=== PATIENT | female | born 1995 | race Two or more races ===

== ENCOUNTER 2019-07-15 09:37 | Emergency (ER) | payer OTHER ==
--- NOTE | 2019-07-15 11:34 | CR ---
Chest: Portable view of the chest was obtained. Comparison: Prior chest x-ray of . Heart size and mediastinum are normal. Lungs are clear with no acute parenchymal change. Bony structures show nothing acute. Impression: 1. Nothing acute is identified on portable chest x-ray. Diagnostic code #1 This report was dictated in MDT
--- NOTE | 2019-07-15 11:51 | EDM.PDOC ---
ED HPI GENERAL MEDICAL PROBLEM - General Chief Complaint: Respiratory Problem Stated Complaint: FLU LIKE SYMPTOMS;COVID-19 positive Time Seen by Provider: 07/15/19 11:09 Source of Information: Reports: Patient, RN Notes Reviewed History Limitations: Reports: No Limitations - History of Present Illness INITIAL COMMENTS - FREE TEXT/NARRATIVE: Patient is a 24-year-old female who presents to the ED for evaluation of her ongoing COVID-19 symptoms. The patient states that she tested positive for blackwell virus on 10 July. She states that the Department of Health traced her symptoms back to have started around 03 July. She states that they said her symptoms should peak in about 5 to 10 days, she states that her shortness of breath is gotten worse, and her body aches have gotten worse, she feels as if she has just been run over by a semi-truck. Patient also does have a history of asthma, and has been using her inhaler. The patient states she is experiencing headache, chest discomfort from the coughing, shortness of breath, loss of appetite And a dry intermittent cough. Patient states that she has not been eating or drinking much at all, she does not feel like she wants to. She states that she is trying to eat Gatorade and small meals. Patient is not noting any wheezing from her lungs. She is taking Tylenol as well for symptoms. At time of triage patient is mildly tachycardic at 113 bpm, afebrile at 98.7 F. Respiratory rate of 20, blood pressure 150/82, and O2 sats of 99% on room air. Chest Pain Score (Numeric/FACES): 4 - Related Data Allergies Allergy/AdvReac Type Severity Reaction Status Date / Time No Known Allergies Allergy Verified 07/15/19 09:39 Home Meds: Home Meds Albuterol Sulfate [Proair Hfa] 8.5 gm IH Q4HR PRN 07/15/19 [History] Past Medical History Respiratory History: Reports: Asthma - Infectious Disease History Infectious Disease History: Reports: Novel Coronavirus (COVID-19 diagnosed Jul 10) - Past Surgical History HEENT Surgical History: Reports: Naso-Sinus Surgery Social & Family History - Family History Family Medical History: Noncontributory - Tobacco Use Smoking Status *Q: Never Smoker Second Hand Smoke Exposure: No ED ROS GENERAL - Review of Systems Review Of Systems: See Below Constitutional: Reports: Fever, Malaise, Weakness, Fatigue, Decreased Appetite. Denies: Weight Loss HEENT: Denies: Rhinitis Respiratory: Reports: Shortness of Breath, Pleuritic Chest Pain, Cough. Denies : Wheezing, Sputum GI/Abdominal: Reports: Nausea (intermittent). Denies: Abdominal Pain, Constipation, Diarrhea, Vomiting Skin: Denies: Cyanosis Neurological: Reports: Headache. Denies: Confusion ED EXAM, GENERAL - Physical Exam Exam: See Below Exam Limited By: No Limitations General Appearance: Alert, WD/WN, No Apparent Distress, Anxious (mildly) Eye Exam: Bilateral Eye: EOMI, Normal Inspection Ears: Normal External Exam Nose: Normal Inspection Throat/Mouth: Normal Inspection, Normal Lips, Normal Teeth, Normal Gums, Normal Oropharynx, Normal Voice, No Airway Compromise Head: Atraumatic, Normocephalic Neck: Normal Inspection Respiratory/Chest: No Respiratory Distress, Lungs Clear, Normal Breath Sounds, No Accessory Muscle Use, Chest Non-Tender Cardiovascular: Normal Peripheral Pulses, Regular Rate, Rhythm, No Edema, No Murmur Peripheral Pulses: 3+: Radial (L), Radial (R) GI/Abdominal: Normal Bowel Sounds, Soft, Non-Tender, No Distention, No Mass Extremities: Normal Inspection, Normal Capillary Refill Neurological: Alert, Oriented, Normal Cognition, No Motor/Sensory Deficits Psychiatric: Normal Affect, Normal Mood Skin Exam: Warm, Dry, Intact, Normal Color, No Rash Course - Vital Signs Last Recorded V/S: Last Vital Signs Temp 98.7 F 07/15/19 09:41 Pulse 113 H 07/15/19 09:41 Resp 20 07/15/19 09:41 BP 150/82 H 07/15/19 09:41 Pulse Ox 99 07/15/19 09:41 - Re-Assessments/Exams Free Text/Narrative Re-Assessment/Exam: 07/15/19 11:56 Patient presents to the ED for her ongoing coronavirus symptoms. The patient did have a chest x-ray done, this is within normal limits, the patient is in no respiratory distress at time of triage, but states she just feels generally miserable. I did give her reassurance, and other general recommendations. Patient will be discharged home as such. Departure - Departure Time of Disposition: 11:56 Disposition: Home, Self-Care 01 Condition: Good Clinical Impression: Infection due to 2019 novel coronavirus - Discharge Information *PRESCRIPTION DRUG MONITORING PROGRAM REVIEWED*: No *COPY OF PRESCRIPTION DRUG MONITORING REPORT IN PATIENT TACOS: No Instructions: Novel Coronavirus Infection Referrals: PCP,None [Primary Care Provider] - Additional Instructions: You were evaluated in the ER today regarding your ongoing COVID-19 symptoms. Your chest x-ray is within normal limits, and your oxygen levels are great at 99 -100% on room air. Due to your asthma, please continue to use your inhaler as directed. You would likely benefit from doing 1 to 2 puffs 4 times a day while symptomatic. You may use 500 mg Tylenol or 600 mg ibuprofen every 6 hours as needed for further pain/symptom relief. Do not exceed 4000 mg Tylenol or 3200 mg ibuprofen in a 24-hour time span. Please try to keep yourself well hydrated with Gatorade and eat multiple small meals throughout the day, if your appetite is lacking. Highly and strongly recommend you still try to self quarantine at home, and keep in contact with the [place] [facility], for tracking of your symptoms. Please return to the ER at any time if symptoms should change or worsen. Sepsis Event Note - Evaluation Sepsis Screening Result: No Definite Risk - Focused Exam Vital Signs: Vital Signs Temp Pulse Resp BP Pulse Ox 07/15/19 09:41 98.7 F 113 H 20 150/82 H 99 Date Exam was Performed: 07/15/19 Time Exam was Performed: 11:45
== END 2019-07-15 12:15 | disposition home or self-care (01) ==
LOC: JD.ED 09:37
DX: B97.29 Other coronavirus as the cause of diseases classified elsewhere (principal)
CPT/HCPCS: 71045; 71045-26; 99282; 99284-25

== ENCOUNTER 2019-07-23 11:34 | Emergency (ER) | payer OTHER ==
--- NOTE | 2019-07-23 12:14 | EDM.PDOC ---
ED HPI GENERAL MEDICAL PROBLEM - General Chief Complaint: Respiratory Problem Stated Complaint: COVID-19 POSITIVE Time Seen by Provider: 07/23/19 11:41 Source of Information: Reports: Patient, Old Records, RN Notes Reviewed History Limitations: Reports: No Limitations - History of Present Illness INITIAL COMMENTS - FREE TEXT/NARRATIVE: Patient is a 24-year-old female who presents to the ED for ongoing COVID-19 symptoms. The patient notes that she was diagnosed on July 10, has an underlying history of asthma as well. She states that she has been staying home , and everything seems to have been going okay, however last night she had a pretty rough night where she felt it very difficult to get any sort of deep breath. She felt like she just could not catch her breath. Patient has been using her albuterol inhaler, last use was at around 8:30 this morning, she is also been using Tylenol for suspected fevers, she does not have a thermometer at home and works. But she has been having ongoing hot and cold flashes. Patient states that she is still having a very poor appetite, and feels as if she is "losing it a little bit". Patient does still have a dry intermittent cough and complains about her chest being tender all over, and she is experiencing some what she thinks is a muscle spasm on the bottom of her right rib cage from time to time. Patient is afebrile at time of triage, 98.5 F, respiratory rate of 20, pulse of 94, blood pressure 119/75, and O2 sats are 99% on room air. The patient was contacted by the clinic this morning to check on how she was doing, and also by the Department of Health, and they told her to come back to the ER for further evaluation due to her ongoing shortness of breath. - Related Data Allergies Allergy/AdvReac Type Severity Reaction Status Date / Time No Known Allergies Allergy Verified 07/23/19 11:41 Home Meds: Home Meds Albuterol Sulfate [Proair Hfa] 8.5 gm IH Q4HR PRN 07/15/19 [History] Past Medical History Respiratory History: Reports: Asthma - Infectious Disease History Infectious Disease History: Reports: Novel Coronavirus Other Infectious Disease History: Covid 19 - Past Surgical History HEENT Surgical History: Reports: Naso-Sinus Surgery Social & Family History - Family History Family Medical History: Noncontributory - Tobacco Use Smoking Status *Q: Never Smoker - Caffeine Use Caffeine Use: Reports: Coffee - Recreational Drug Use Recreational Drug Use: No ED ROS GENERAL - Review of Systems Review Of Systems: See Below Constitutional: Reports: Fever (subjective), Chills (subjective), Malaise ( generalized), Decreased Appetite. Denies: Weight Loss HEENT: Denies: Rhinitis Respiratory: Reports: Shortness of Breath (worsened), Cough. Denies: Sputum Cardiovascular: Reports: Chest Pain (all over chest tenderness) GI/Abdominal: Reports: Nausea. Denies: Abdominal Pain, Constipation, Diarrhea, Vomiting : Denies: Dysuria ED EXAM, GENERAL - Physical Exam Exam: See Below Exam Limited By: No Limitations General Appearance: Alert, WD/WN, No Apparent Distress (pt can converse with me in full sentences) Eye Exam: Bilateral Eye: EOMI, Normal Inspection, PERRL Ears: Normal External Exam Nose: Normal Inspection Throat/Mouth: Normal Inspection, Normal Lips, Normal Teeth, Normal Gums, Normal Oropharynx, Normal Voice, No Airway Compromise Head: Atraumatic, Normocephalic Neck: Normal Inspection Respiratory/Chest: No Respiratory Distress, Lungs Clear, No Accessory Muscle Use , Decreased Breath Sounds (diffuse bilaterally). No: Rhonchi, Wheezing Cardiovascular: Normal Peripheral Pulses, Regular Rate, Rhythm, No Edema, No Murmur GI/Abdominal: Normal Bowel Sounds, Soft, Non-Tender, No Distention, No Mass Extremities: Normal Inspection, Normal Capillary Refill Neurological: Alert, Oriented, CN II-XII Intact, Normal Cognition, No Motor/ Sensory Deficits Psychiatric: Normal Affect, Normal Mood Skin Exam: Warm, Dry, Intact, Normal Color, No Rash Course - Vital Signs Last Recorded V/S: Last Vital Signs Temp 98.5 F 07/23/19 11:39 Pulse 94 07/23/19 11:39 Resp 20 07/23/19 11:39 BP 119/75 07/23/19 11:39 Pulse Ox 99 07/23/19 11:39 - Orders/Labs/Meds Orders: Active Orders 24 hr Category Date Time Status Peripheral IV Care [RC] . DIRECTED Care 07/23/19 12:18 Ordered Sodium Chloride 0.9% [Saline Flush] Med 07/23/19 12:18 Ordered 10 ml FLUSH ASDIRECTED PRN Peripheral IV Insertion Adult [OM.PC] Stat Oth 07/23/19 12:18 Ordered Medication Orders Sodium Chloride (Saline Flush) 10 ml FLUSH ASDIRECTED PRN PRN Reason: Keep Vein Open Labs: Laboratory Tests 07/23/19 07/23/19 07/23/19 Range/Units 12:35 12:35 12:35 WBC 8.15 (3.98-10.04) K/mm3 RBC 4.70 (3.98-5.22) M/mm3 Hgb 14.8 (11.2-15.7) gm/dl Hct 42.2 (34.1-44.9) % MCV 89.8 (79.4-94.8) fl MCH 31.5 (25.6-32.2) pg MCHC 35.1 (32.2-35.5) g/dl RDW Std Deviation 42.2 (36.4-46.3) fL Plt Count 282 (182-369) K/mm3 MPV 9.8 (9.4-12.3) fl Neutrophils % (Manual) 92 H (40-60) % Band Neutrophils % 0 (0-10) % Lymphocytes % (Manual) 7 L (20-40) % Atypical Lymphs % 0 % Monocytes % (Manual) 1 L (2-10) % Eosinophils % (Manual) 0 L (0.7-5.8) % Basophils % (Manual) 0 L (0.1-1.2) Platelet Estimate Adequate RBC Morph Comment Normal PT 10.4 (9.7-12.0) SECONDS INR 0.95 APTT 29 (22-31) SECONDS Sodium (136-145) mEq/L Potassium (3.5-5.1) mEq/L Chloride (98-107) mEq/L Carbon Dioxide (21-32) mEq/L Anion Gap (5-15) BUN (7-18) mg/dL Creatinine (0.55-1.02) mg/dL Est Cr Clr Drug Dosing mL/min Estimated GFR (MDRD) (>60) mL/min BUN/Creatinine Ratio (14-18) Glucose (74-106) mg/dL Calcium (8.5-10.1) mg/dL Magnesium (1.8-2.4) mg/dl Ferritin (8-252) ng/ml Total Bilirubin (0.2-1.0) mg/dL AST (15-37) U/L ALT (14-59) U/L Alkaline Phosphatase (46-116) U/L Lactate Dehydrogenase (81-234) U/L Creatine Kinase (26-192) U/L C-Reactive Protein 1.3 H* (<1.0) mg/dL Total Protein (6.4-8.2) g/dl Albumin (3.4-5.0) g/dl Globulin gm/dL Albumin/Globulin Ratio (1-2) 07/23/19 07/23/19 Range/Units 12:35 12:35 WBC (3.98-10.04) K/mm3 RBC (3.98-5.22) M/mm3 Hgb (11.2-15.7) gm/dl Hct (34.1-44.9) % MCV (79.4-94.8) fl MCH (25.6-32.2) pg MCHC (32.2-35.5) g/dl RDW Std Deviation (36.4-46.3) fL Plt Count (182-369) K/mm3 MPV (9.4-12.3) fl Neutrophils % (Manual) (40-60) % Band Neutrophils % (0-10) % Lymphocytes % (Manual) (20-40) % Atypical Lymphs % % Monocytes % (Manual) (2-10) % Eosinophils % (Manual) (0.7-5.8) % Basophils % (Manual) (0.1-1.2) Platelet Estimate RBC Morph Comment PT (9.7-12.0) SECONDS INR APTT (22-31) SECONDS Sodium 141 (136-145) mEq/L Potassium 4.1 (3.5-5.1) mEq/L Chloride 104 (98-107) mEq/L Carbon Dioxide 27 (21-32) mEq/L Anion Gap 14.1 (5-15) BUN 15 (7-18) mg/dL Creatinine 0.9 (0.55-1.02) mg/dL Est Cr Clr Drug Dosing 68.04 mL/min Estimated GFR (MDRD) > 60 (>60) mL/min BUN/Creatinine Ratio 16.7 (14-18) Glucose 83 (74-106) mg/dL Calcium 9.4 (8.5-10.1) mg/dL Magnesium 2.0 (1.8-2.4) mg/dl Ferritin 91 (8-252) ng/ml Total Bilirubin 0.6 (0.2-1.0) mg/dL AST 20 (15-37) U/L ALT 34 (14-59) U/L Alkaline Phosphatase 75 (46-116) U/L Lactate Dehydrogenase 158 (81-234) U/L Creatine Kinase 52 (26-192) U/L C-Reactive Protein (<1.0) mg/dL Total Protein 7.9 (6.4-8.2) g/dl Albumin 3.8 (3.4-5.0) g/dl Globulin 4.1 gm/dL Albumin/Globulin Ratio 0.9 L (1-2) Meds: Medications Generic Name Dose Route Start Last Admin Trade Name Freq PRN Reason Stop Dose Admin Sodium Chloride 10 ml 07/23/19 12:18 Saline Flush FLUSH ASDIRECTED PRN Keep Vein Open - Re-Assessments/Exams Free Text/Narrative Re-Assessment/Exam: 07/23/19 12:19 Patient presents to the ED for her ongoing COVID-19 symptoms. I will repeat a chest x-ray, and get some laboratory evaluation to see if she is possibly dehydrated, her O2 sats look okay, will reassess when labs and imaging is done. 07/23/19 12:43 The patient's chest x-ray is done, and there are no acute infiltrates noted on the chest x-ray at this time. Laboratory evaluation is pending. Current information from [facility] states: According to the WHO, recovery time appears to be around two weeks for mild infections and three to six weeks for severe disease. 07/23/19 13:49 The patient's laboratory evaluation is back, and CRP is only mildly elevated at 1.6. All other lab values are within normal limits. At this time there is no indication for hospitalization, the patient will be discharged home with general recommendations and have her follow-up in clinic if needed. Departure - Departure Time of Disposition: 13:50 Disposition: Home, Self-Care 01 Condition: Fair Clinical Impression: Infection due to 2019 novel coronavirus - Discharge Information *PRESCRIPTION DRUG MONITORING PROGRAM REVIEWED*: No *COPY OF PRESCRIPTION DRUG MONITORING REPORT IN PATIENT TACOS: No Instructions: Shortness of Breath, Adult, [id number] Forms: ED Department Discharge Additional Instructions: You were seen in the ER today for ongoing and/or worsening respiratory symptoms. Your chest x-ray showed no signs of pneumonia at this time. Your oxygen levels were great at 98-99% on room air. Laboratory evaluation demonstrates no worrisome abnormalities at this time. Keep using your albuterol inhaler, roughly 1 to 2 puffs 4 times a day to help lessen symptoms of shortness of breath. It is recommended at this time that you go home and self quarantine and try to limit exposure to others as much as possible. Please try to increase your oral fluid intake, and eat multiple small meals throughout the day, to keep yourself healthy. You may take 500 mg Tylenol every hours 6 hours for pain/fever relief. Do not exceed 4000 mg Tylenol in a 24-hour time span. However, running a fever is your body's natural response to illness, and it allows the body to develop antibodies to disease, we are recommending trying to limit the use of Tylenol as much as possible to allow your body's natural immune response. It is recommended to try to lay on your belly as much as possible, this does take some pressure off of your lungs in therapy, and should help lessen your shortness of breath. Please keep in contact with your primary care provider, and the [facility], to keep monitoring your symptoms as needed. Sepsis Event Note - Evaluation Sepsis Screening Result: No Definite Risk - Focused Exam Vital Signs: Vital Signs Temp Pulse Resp BP Pulse Ox 07/23/19 11:39 98.5 F 94 20 119/75 99 Date Exam was Performed: 07/23/19 Time Exam was Performed: 13:52 - My Orders Last 24 Hours: My Active Orders 07/23/19 12:18 Peripheral IV Care [RC] . DIRECTED Sodium Chloride 0.9% [Saline Flush] 10 ml FLUSH ASDIRECTED PRN Peripheral IV Insertion Adult [OM.PC] Stat - Assessment/Plan Last 24 Hours: My Active Orders 07/23/19 12:18 Peripheral IV Care [RC] . DIRECTED Sodium Chloride 0.9% [Saline Flush] 10 ml FLUSH ASDIRECTED PRN Peripheral IV Insertion Adult [OM.PC] Stat
[2019-07-23] MEDS ORDERED: Sodium Chloride 0.9% 10 ML Syringe FLUSH PRN (12:18)
--- NOTE | 2019-07-23 12:38 | CR ---
Chest: Portable view of the chest was obtained. Comparison: Previous chest imaging of 07/15/19. Heart size and mediastinum are within normal limits for portable technique. Lungs are clear with no acute parenchymal change. Bony structures are unremarkable. Impression: 1. Nothing acute is appreciated on portable chest x-ray. Diagnostic code #1 This report was dictated in MDT
== END 2019-07-23 14:47 | disposition home or self-care (01) ==
LOC: JD.ED 11:34
DX: U07.1 COVID-19 (principal); J45.909 Unspecified asthma, uncomplicated
CPT/HCPCS: 36415; 71045; 71045-26; 80053; 82550; 82728; 83615; 83735; 85007; 85027; 85610; 85730; 86140; 99283; 99285-25

== ENCOUNTER 2020-02-06 10:07 | Day surgery (SDC) | payer BC, OTHER ==
[~2020-02-06 10:07] MED LIST: FLU VACC QS2020-21(6MOS UP)/PF 60 MCG/0.5 ML SYRINGE IM ONE; Lactated Ringers 1,000 ML IV SCH; Lidocaine 1%/Sod Bicarbonate in NS 8.4% 1 ML Syringe IDERM PRN; Sodium Chloride 0.9% 10 ML Syringe FLUSH PRN
--- NOTE | 2020-02-06 10:26 | PCM.PREANE ---
Preanesthetic Assessment - Procedure Proposed Procedure: colonoscopy - Anesthesia/Transfusion/Family Hx Anesthesia History: Prior Anesthesia Without Reaction Family History of Anesthesia Reaction: No Transfusion History: No Prior Transfusion(s) - Review of Systems General: No Symptoms Pulmonary: No Symptoms Cardiovascular: No Symptoms Gastrointestinal: Abdominal Pain (bleeding- constipation and diarrhea) Neurological: No Symptoms Other: Reports: Depression, Anxiety - Physical Assessment NPO Status Date: 02/05/20 NPO Status Time: 23:30 Vital Signs: 120/78 90 96% 16 98.1 Height: 5 ft Weight: 100.5 kg ASA Class: 2 Mental Status: Alert & Oriented x3 Airway Class: Mallampati = 1 Dentition: Reports: Normal Dentition (has braces on) Thyro-Mental Finger Breadths: 3 Mouth Opening Finger Breadths: 3 ROM/Head Extension: Full Lungs: Clear to Auscultation, Normal Respiratory Effort Cardiovascular: Regular Rate, Regular Rhythm - Lab Values: Laboratory Last Values SARS-CoV-2 (PCR) Not detected (NOT DETECT) 02/02/20 10:18 - Allergies Allergies/Adverse Reactions: Allergies Allergy/AdvReac Type Severity Reaction Status Date / Time adhesive Allergy Cannot Verified 02/05/20 15:15 Remember levocetirizine [From Xyzal] Allergy Cannot Verified 02/05/20 15:15 Remember peanut Allergy Cannot Verified 02/05/20 15:15 Remember dihydrochlride Allergy Cannot Uncoded 02/05/20 15:15 Remember - Blood Blood Available: No - Acknowledgements Anesthesia Type Planned: MAC Pt an Appropriate Candidate for the Planned Anesthesia: Yes Alternatives and Risks of Anesthesia Discussed w Pt/Guardian: Yes Pt/Guardian Understands and Agrees with Anesthesia Plan: Yes PreAnesthesia Questionnaire HEENT History: Reports: Sinusitis Cardiovascular History: Reports: None Respiratory History: Reports: Asthma Gastrointestinal History: Reports: Other (See Below) Other Gastrointestinal History: strep pneumonae Genitourinary History: Reports: None PROJECT DEVELOPMENT LEADER History: Reports: None Musculoskeletal History: Reports: Back Pain, Chronic, Neck Pain, Chronic Neurological History: Reports: Headaches, Chronic Psychiatric History: Reports: Anxiety Endocrine/Metabolic History: Reports: Obesity/BMI 30+ Hematologic History: Reports: None Immunologic History: Reports: None Oncologic (Cancer) History: Reports: None Dermatologic History: Reports: None - Infectious Disease History Infectious Disease History: Reports: Novel Coronavirus Other Infectious Disease History: Covid 19 - Past Surgical History Head Surgeries/Procedures: Reports: None HEENT Surgical History: Reports: Naso-Sinus Surgery Cardiovascular Surgical History: Reports: None Respiratory Surgical History: Reports: None GI Surgical History: Reports: None Female Surgical History: Reports: None Male Surgical History: Reports: None Endocrine Surgical History: Reports: None Neurological Surgical History: Reports: None Musculoskeletal Surgical History: Reports: None Oncologic Surgical History: Reports: None Dermatological Surgical History: Reports: None - SUBSTANCE USE Tobacco Use Status *Q: Never Tobacco User Tobacco Use Within Last Twelve Months: No Second Hand Smoke Exposure: No Days Per Week of Alcohol Use: 1 Recreational Drug Use History: No - HOME MEDS Home Medications: Home Meds Albuterol Sulfate [Proair Hfa] 8.5 gm IH Q4HR PRN 07/15/19 [History] Acetaminophen [Tylenol] 650 mg PO Q4H PRN 02/05/20 [History] Cyclobenzaprine [Flexeril] 10 mg PO TID PRN 02/05/20 [History] DULoxetine [Cymbalta] 30 mg PO DAILY 02/05/20 [History] DULoxetine [Cymbalta] 60 mg PO DAILY 02/05/20 [History] Fexofenadine [Jo Ann] 60 mg PO BID PRN 02/05/20 [History] Fluticasone Propionate [Flonase] 1 dose NASBOTH ASDIRECTED PRN 02/05/20 [History] Phentermine HCl 15 mg PO DAILY 02/05/20 [History] - CURRENT (IN HOUSE) MEDS Current Meds: Current Medications Lactated Ringer's (Ringers, Lactated) 1,000 mls @ 125 mls/hr IV ASDIRECTED KAIN Stop: 02/06/20 23:00 Lidocaine/Sodium Bicarbonate (Buffered Lidocaine 1% In Ns 8.4%) 0.25 ml IDERM O NETIME PRN PRN Reason: Prior to IV Start Stop: 02/06/20 18:00 Sodium Chloride (Saline Flush) 10 ml FLUSH ASDIRECTED PRN PRN Reason: Keep Vein Open Stop: 02/06/20 18:00 Discontinued Medications Influenza Virus Vaccine (Fluzone Quad [id number] Syringe) 60 mcg IM .ONCE ONE Stop: 02/06/20 08:01
[2020-02-06] MEDS ORDERED: Propofol 200 MG/20 ML SDV ONE ×2 (10:34→11:25)
[2020-02-06] MEDS ORDERED: Midazolam 1 MG/ML 2 ML SDV ONE (10:34)
[2020-02-06] MEDS ORDERED: Lidocaine 1% 4 ML ONE (11:22)
[2020-02-06] MEDS ORDERED: fentaNYL 250 MCG/5 ML SDV ONE (11:25)
--- NOTE | 2020-02-06 12:11 | PCM48HPAN ---
Post Anesthesia Note - EVALUATION WITHIN 48HRS OF ANESTHETIC Vital Signs in Normal Range: Yes Patient Participated in Evaluation: Yes Respiratory Function Stable: Yes Airway Patent: Yes Cardiovascular Function Stable: Yes Hydration Status Stable: Yes Pain Control Satisfactory: Yes Nausea and Vomiting Control Satisfactory: Yes Mental Status Recovered: Yes Vital Signs: Last Vital Signs Temp 36.7 C 02/06/20 10:15 Pulse 90 02/06/20 10:15 Resp 16 02/06/20 10:15 BP 120/78 02/06/20 10:15 Pulse Ox 96 02/06/20 10:15
--- NOTE | 2020-02-06 12:11 | PCM.OPNOTE ---
- General Post-Op/Procedure Note Date of Surgery/Procedure: 02/06/20 Operative Procedure(s): colonoscopy with hemorrhoid banding Findings: 1. Proctitis 2. Internal hemorrhoids Pre Op Diagnosis: rectal bleeding and anal pain Post-Op Diagnosis: same Anesthesia Technique: KAREN Primary Surgeon: Roma Redmond Anesthesia Provider: Elaine Martinez Pathology: Rectal biopsies Fluid Replacement, Intraop: 900 EBL in mLs: 0 Complications: none apparent Condition: Good
--- NOTE | 2020-02-06 12:12 | PCM.PRNOTE ---
- Free Text/Narrative Note: Operative Report Date of Surgery/Procedure: February 06, 2020 Operative Procedure: Colonoscopy to cecum with biopsy Pre Op Diagnosis: rectal bleeding and anal pain Post-Op Diagnosis: Same Surgeon: Roma Redmond MD Anesthesia Technique: MAC Anesthesia Provider: Elaine Martinez CRNA IV Fluid Replacement, Intraop: 900cc Output, Urine Amount: 0cc EBL : 0cc Findings: 1. Proctitis 2. Internal hemorrhoids Specimens: Rectal biopsies Indication: The patient is a 24 year-old lady who presented to the outpatient clinic for complaints of rectal bleeding and anal pain. We discussed the procedure of a colonoscopy including the polypectomy and biopsy, and possible hemorrhoid banding. Risks of bleeding and perforation were discussed, the patient understood and wished to proceed. Written and consent was obtained Description of the procedure: The patient was brought to the endoscopy suite and placed in the left lateral decubitus position. Appropriate monitors were applied. The patient was given MAC anesthesia. An anorectal examination was performed, revealing minimal external skin tags. The scope was placed into the rectum and advanced to cecum with minimal difficulty. The patients cecum was entered, and the ileocecal valve and appendiceal orifice were identified and normal. At this point, the scope was withdrawn, paying careful attention to the mucosa. The patient had good bowel prep, allowing for visualization of 85-90% of the mucosa. Increased vascularity was noted in the rectum, biopsies were taken in this area using a cold biopsy forceps. In the rectum, the scope was retroflexed and no abnormalities were noted, except for some hemorrhoidal tissue. The scope was placed back in the lumen and the excess air was aspirated. The hemorrhoid banding anoscope was then inserted. There were prominent hemorrhoid cushions noted with anoscope. Hemorrhoid bands x3 were placed. The anoscope was then withdrawn. The patient tolerated the procedure well. Complications: none apparent Condition: Good, transported to PACU in stable condition Roma Redmond MD General Surgery
== END 2020-02-06 12:56 | disposition home or self-care (01) ==
LOC: JD.SDS 10:07
PROVIDERS: ATTEND Surgery
DX: K62.89 Other specified diseases of anus and rectum (principal); K64.8 Other hemorrhoids; L91.8 Other hypertrophic disorders of the skin; K64.4 Residual hemorrhoidal skin tags; F41.9 Anxiety disorder, unspecified; J45.909 Unspecified asthma, uncomplicated; Z79.899 Other long term (current) drug therapy
CPT/HCPCS: 45380; 46221; 81025; J2001; J2250; J2704; J3010; J7120; 00902; U0002

== ENCOUNTER 2020-02-27 07:53 | Day surgery (SDC) | payer BC ==
[~2020-02-27 07:53] MED LIST changes: -FLU VACC QS2020-21(6MOS UP)/PF 60 MCG/0.5 ML SYRINGE IM ONE
--- NOTE | 2020-02-27 08:25 | PCM.PREANE ---
Preanesthetic Assessment - Procedure Proposed Procedure: egd - Anesthesia/Transfusion/Family Hx Anesthesia History: Prior Anesthesia Without Reaction Family History of Anesthesia Reaction: No Transfusion History: No Prior Transfusion(s) - Review of Systems General: No Symptoms Pulmonary: No Symptoms Cardiovascular: No Symptoms Gastrointestinal: No Symptoms Neurological: No Symptoms Other: Reports: Depression, Anxiety - Physical Assessment NPO Status Date: 02/26/20 NPO Status Time: 21:30 Vital Signs: Last Vital Signs Temp 97.0 F 02/27/20 07:55 Pulse 80 02/27/20 07:55 Resp 16 02/27/20 07:55 BP 114/71 02/27/20 07:55 Pulse Ox 97 02/27/20 07:55 Height: 5 ft Weight: 102.512 kg ASA Class: 3 Mental Status: Alert & Oriented x3 Airway Class: Mallampati = 1 Dentition: Reports: Normal Dentition Thyro-Mental Finger Breadths: 3 Mouth Opening Finger Breadths: 3 ROM/Head Extension: Full Lungs: Clear to Auscultation, Normal Respiratory Effort Cardiovascular: Regular Rate, Regular Rhythm - Lab Values: Laboratory Last Values Urine HCG, Qual Negative (NEGATIVE) 02/27/20 07:52 - Allergies Allergies/Adverse Reactions: Allergies Allergy/AdvReac Type Severity Reaction Status Date / Time adhesive Allergy Cannot Verified 02/06/20 10:58 Remember levocetirizine [From Xyzal] Allergy Cannot Verified 02/06/20 10:58 Remember peanut Allergy Cannot Verified 02/06/20 10:58 Remember dihydrochlride Allergy Cannot Uncoded 02/05/20 15:15 Remember - Blood Blood Available: No - Acknowledgements Anesthesia Type Planned: MAC Pt an Appropriate Candidate for the Planned Anesthesia: Yes Alternatives and Risks of Anesthesia Discussed w Pt/Guardian: Yes Pt/Guardian Understands and Agrees with Anesthesia Plan: Yes PreAnesthesia Questionnaire HEENT History: Reports: Sinusitis Cardiovascular History: Reports: None Respiratory History: Reports: Asthma Gastrointestinal History: Reports: Other (See Below) Other Gastrointestinal History: strep pneumonae Genitourinary History: Reports: None HIDES INSPECTOR History: Reports: None Musculoskeletal History: Reports: Back Pain, Chronic, Neck Pain, Chronic Neurological History: Reports: Headaches, Chronic Psychiatric History: Reports: Anxiety Endocrine/Metabolic History: Reports: Obesity/BMI 30+ Hematologic History: Reports: None Immunologic History: Reports: None Oncologic (Cancer) History: Reports: None Dermatologic History: Reports: None - Infectious Disease History Infectious Disease History: Reports: None Other Infectious Disease History: Covid 19 - Past Surgical History Head Surgeries/Procedures: Reports: None HEENT Surgical History: Reports: Naso-Sinus Surgery Cardiovascular Surgical History: Reports: None Respiratory Surgical History: Reports: None GI Surgical History: Reports: None, Colonoscopy Female Surgical History: Reports: None Male Surgical History: Reports: None Endocrine Surgical History: Reports: None Neurological Surgical History: Reports: None Musculoskeletal Surgical History: Reports: None Oncologic Surgical History: Reports: None Dermatological Surgical History: Reports: None - SUBSTANCE USE Tobacco Use Status *Q: Never Tobacco User Tobacco Use Within Last Twelve Months: No Second Hand Smoke Exposure: No Days Per Week of Alcohol Use: 0 Recreational Drug Use History: No - HOME MEDS Home Medications: Home Meds Albuterol Sulfate [Proair Hfa] 8.5 gm IH Q4HR PRN 07/15/19 [History] Acetaminophen [Tylenol] 650 mg PO Q4H PRN 02/05/20 [History] Cyclobenzaprine [Flexeril] 10 mg PO TID PRN 02/05/20 [History] DULoxetine [Cymbalta] 30 mg PO DAILY 02/05/20 [History] DULoxetine [Cymbalta] 60 mg PO DAILY 02/05/20 [History] Fexofenadine [Jo Ann] 60 mg PO BID PRN 02/05/20 [History] Fluticasone Propionate [Flonase] 1 dose NASBOTH ASDIRECTED PRN 02/05/20 [History] Phentermine HCl 15 mg PO DAILY 02/05/20 [History] L.acidoph,Paracasei, B.lactis [Probiotic] 1 cap PO DAILY 02/27/20 [History] Omeprazole 20 mg PO DAILY 02/27/20 [History] Sucralfate [Carafate] 1 gm PO TID 02/27/20 [History] - CURRENT (IN HOUSE) MEDS Current Meds: Current Medications Lactated Ringer's (Ringers, Lactated) 1,000 mls @ 125 mls/hr IV ASDIRECTED KAIN Stop: 02/27/20 23:00 Last Admin: 02/27/20 08:10 Dose: 125 mls/hr Documented by: Lidocaine/Sodium Bicarbonate (Buffered Lidocaine 1% In Ns 8.4%) 0.25 ml IDERM ONETIME PRN PRN Reason: Prior to IV Start Stop: 02/27/20 18:00 Last Admin: 02/27/20 08:09 Dose: 0.25 ml Documented by: Sodium Chloride (Saline Flush) 10 ml FLUSH ASDIRECTED PRN PRN Reason: Keep Vein Open Stop: 02/27/20 18:00
[2020-02-27] MEDS ORDERED: Midazolam 1 MG/ML 2 ML SDV ONE (09:02)
[2020-02-27] MEDS ORDERED: Lidocaine 1% 4 ML ONE (09:02)
[2020-02-27] MEDS ORDERED: Propofol 200 MG/20 ML SDV ONE ×2 (09:02→09:49)
--- NOTE | 2020-02-27 10:19 | PCM48HPAN ---
Post Anesthesia Note - EVALUATION WITHIN 48HRS OF ANESTHETIC Vital Signs in Normal Range: Yes Patient Participated in Evaluation: Yes Respiratory Function Stable: Yes Airway Patent: Yes Cardiovascular Function Stable: Yes Hydration Status Stable: Yes Pain Control Satisfactory: Yes Nausea and Vomiting Control Satisfactory: Yes Mental Status Recovered: Yes Vital Signs: Last Vital Signs Temp 36.1 C 02/27/20 07:55 Pulse 80 02/27/20 07:55 Resp 16 02/27/20 07:55 BP 114/71 02/27/20 07:55 Pulse Ox 97 02/27/20 07:55 - COMMENTS/OBSERVATIONS Free Text/Narrative:: no anesthesia complications noted
--- NOTE | 2020-02-27 10:29 | PCM.OPNOTE ---
- General Post-Op/Procedure Note Date of Surgery/Procedure: 02/27/20 Operative Procedure(s): EGD Findings: 1. Duodenitis 2. Gastritis with irregular mucosa in the antrum 3. Hiatal hernia 4. Suspected Chou's changes 5. Proximal esophagitis Pre Op Diagnosis: Nausea, abdominal pain, hematemesis Post-Op Diagnosis: same Anesthesia Technique: KAREN Primary Surgeon: Roma Redmond Anesthesia Provider: Jeferson Anaya Pathology: 1. Duodenal biopsies 2. Antral biopsies 3. GE junction biopsies 4. Distal esophagus biopsies at 36cm 5. Proximal esophagus biopsies at 15cm Fluid Replacement, Intraop: 900 Complications: none apparent Condition: Good
--- NOTE | 2020-02-27 10:40 | PCM.PRNOTE ---
- Free Text/Narrative Note: Operative Report Date of procedure: February 27, 2020 Preoperative diagnosis: Nausea, abdominal pain, hematemesis Postoperative diagnosis: same Surgeon: Roma Redmond M.D. Procedure: EGD Anesthesia: MAC Research And Development Tester: Jeferson Anaya CRNA IV fluids: 900 mL Estimated blood loss: 0 mL Findings: 1. Duodenitis 2. Gastritis with irregular mucosa in the antrum 3. Hiatal hernia 4. Suspected Chou's changes 5. Proximal esophagitis Specimens: 1. Duodenal biopsies 2. Antral biopsies 3. GE junction biopsies 4. Distal esophagus biopsies at 36cm 5. Proximal esophagus biopsies at 15cm Indication: The patient is a 24 -year-old lady who presented with nausea, abdominal pain, and hematemesis. The patient was consented for an EGD. Risk of bleeding and perforation were discussed. The patient's consent was obtained Description of the procedure: The patient was taken to the endoscopy suite and placed on hemodynamic monitoring. The nurse assistant media buyer induced MAC anesthesia. A bite block was placed. The patient was positioned in the left lateral decubitus position. A timeout was performed. The endoscope was gently placed into the mouth to the back of the pharynx and introduced into the esophagus. The scope was gently advanced under direct visualization down to the level of the lower esophageal sphincter. The stomach was then entered. Normal rugal folds were noted. The scope was advanced into the antrum. The pylorus was then entered and the first and second portion of the duodenum was inspected. We did note some erythema and friability noted in the bulb of the duodenum and biopsies were taken in a cold biopsy forceps. The scope was withdrawn to the antrum and we noted erythema consistent with gastritis as well as some irregular, polypoid mucosa and biopsies were taken with a cold biopsy forceps for pathology and H. pylori. The scope was then retroflexed in the cardia and fundus were investigated. There was diffuse erythema in this location also. No other abnormalities were noted. The scope was then withdrawn while inspecting the esophagus. There was a 6cm hiatal hernia measured. The Z line was irregular with two tongues of salmon colored mucosa suspicious for Chou's esophagus. Biopsies were taken in four quadrants at two levels at a 2cm interval for pathology. In the proximal esophagus, a patch of mucosa was present consistent with esophagitis was seen at 15cm, and a biopsy was taken with a cold biopsy forceps. The scope was then withdrawn. The procedure was terminated. the patient tolerated the procedure well without any evidence of complications. Roma Redmond MD General Surgery
== END 2020-02-27 10:57 | disposition home or self-care (01) ==
LOC: JD.SDS 07:53
PROVIDERS: ATTEND Surgery
DX: K29.90 Gastroduodenitis, unspecified, without bleeding (principal); K44.9 Diaphragmatic hernia without obstruction or gangrene; K20.90 Esophagitis, unspecified without bleeding; K31.89 Other diseases of stomach and duodenum; F41.9 Anxiety disorder, unspecified; J45.909 Unspecified asthma, uncomplicated; G89.29 Other chronic pain; E66.9 Obesity, unspecified; Z68.41 Body mass index [BMI] 40.0-44.9, adult; Z88.8 Allergy status to other drugs, medicaments and biological substances; Z91.010 Allergy to peanuts; Z91.09 Other allergy status, other than to drugs and biological substances; Z79.899 Other long term (current) drug therapy
CPT/HCPCS: 43239; 81025; J2001; J2250; J2704; J7120; 00731

== ENCOUNTER 2020-09-11 10:52 | Emergency (ER) | payer SELFPAY ==
[2020-09-11] MEDS ORDERED: Sodium Chloride 0.9% 10 ML Syringe FLUSH PRN (11:36)
--- NOTE | 2020-09-11 12:03 | EDM.PDOC ---
ED HPI GENERAL MEDICAL PROBLEM - General Chief Complaint: Chest Pain Stated Complaint: CHEST PAIN Time Seen by Provider: 09/11/20 11:06 Source of Information: Reports: Patient History Limitations: Reports: No Limitations, Other (ED vital signs reveal a temp of 96.7, pulse of 108, respiratory rate 24, blood pressure 144/85) - History of Present Illness INITIAL COMMENTS - FREE TEXT/NARRATIVE: 25-year-old female presents to the emergency department today with complaints of left stabbing chest pain and tachycardia. Patient states that this started at about 10:00 this morning as she was sitting at work at her desk. She states the pain is a stabbing pain to her left chest that comes and goes fairly frequently. She states it does not last long. She does admit to having some diaphoresis with the pain however denies any nausea. She denies radiation to her jaw or shoulder as she states it is fairly localized. Nothing seems to make the chest pain any worse or better. She states she has had GERD in the past and this pain is nothing like her GERD symptoms. She also admits to having some anxiety however she states that this does not feel similar to that pain. She states that since she was 14 she has had issues with tachycardia and she had an EKG at the age of 14. She states she has been to providers in the past however they do not seem to take her seriously. She denies any other significant medical history. She denies smoking. She is obese with a BMI of 48.8. She denies any fever, chills, nausea, vomiting, diarrhea, headache, shortness of breath or abdominal pain. Treatments INSURANCE PROCESSOR: Reports: EKG Left Upper Chest Pain Score (Numeric/FACES): 6 - Related Data Allergies Allergy/AdvReac Type Severity Reaction Status Date / Time adhesive Allergy Cannot Verified 09/11/20 11:14 Remember levocetirizine [From Xyzal] Allergy Cannot Verified 09/11/20 11:14 Remember peanut Allergy Cannot Verified 09/11/20 11:14 Remember dihydrochlride Allergy Cannot Uncoded 09/11/20 11:14 Remember Home Meds: Home Meds . 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 Musculoskeletal History: Reports: Back Pain, Chronic, Fibromyalgia, Neck Pain, Chronic Neurological History: Reports: Headaches, Chronic Psychiatric History: Reports: Anxiety Endocrine/Metabolic History: Reports: Obesity/BMI 30+ Hematologic History: Reports: None Immunologic History: Reports: None Oncologic (Cancer) History: Reports: None Dermatologic History: Reports: None - Infectious Disease History Infectious Disease History: Reports: Novel Coronavirus Other Infectious Disease History: Covid 19 - Past Surgical History Head Surgeries/Procedures: Reports: None HEENT Surgical History: Reports: Naso-Sinus Surgery Cardiovascular Surgical History: Reports: None Respiratory Surgical History: Reports: None GI Surgical History: Reports: None, Colonoscopy Female Surgical History: Reports: None Endocrine Surgical History: Reports: None Neurological Surgical History: Reports: None Musculoskeletal Surgical History: Reports: None Oncologic Surgical History: Reports: None Dermatological Surgical History: Reports: None Social & Family History - Family History Family Medical History: No Pertinent Family History - Tobacco Use Tobacco Use Status *Q: Unknown Ever Used Tobacco Second Hand Smoke Exposure: No - Caffeine Use Caffeine Use: Reports: None - Recreational Drug Use Recreational Drug Use: No ED ROS GENERAL - Review of Systems Review Of Systems: Comprehensive ROS is negative, except as noted in HPI. ED EXAM, GENERAL - Physical Exam Exam: See Below Exam Limited By: No Limitations General Appearance: Alert, WD/WN, No Apparent Distress Ears: Normal External Exam, Hearing Grossly Normal Nose: Normal Inspection, Normal Mucosa Throat/Mouth: Normal Inspection, Normal Lips, Normal Voice, No Airway Compromise Head: Atraumatic Neck: Normal Inspection, Supple Respiratory/Chest: No Respiratory Distress, Lungs Clear, Normal Breath Sounds, No Accessory Muscle Use, Chest Non-Tender Cardiovascular: Normal Peripheral Pulses, No Edema, No Murmur, Tachycardia Peripheral Pulses: 2+: Radial (L), Radial (R) GI/Abdominal: Normal Bowel Sounds, Soft, Non-Tender, No Distention, Other (morbid obesity) (Female) Exam: Deferred Rectal (Female) Exam: Deferred Back Exam: Normal Inspection Extremities: Normal Inspection, Normal Range of Motion, Non-Tender, No Pedal Edema, Normal Capillary Refill Neurological: Alert, Oriented, Normal Cognition Psychiatric: Normal Affect, Normal Mood Skin Exam: Warm, Dry, Intact, Normal Color, No Rash Lymphatic: No Adenopathy #1 Interpretation EKG Date: 09/11/20 Time: 10:58 Rhythm: NSR Rate (Beats/Min): 101 [place]: Normal P-Wave: Present QRS: Normal ST-T: Normal QT: Normal Comparison: NA - No Prior EKG EKG Interpretation Comments: Per Dr. Black interpretation: sinus tachycardia @ 101; otherwise normal EKG Course - Vital Signs Text/Narrative:: Patient presents with complaints of localized stabbing chest pain to the left chest wall which radiates into her back. She will complains of tachycardia. States this has been an ongoing issue since the age of 14 however she has not had a full work-up. States she was sitting at her desk at about 10:00 this morning when she developed the chest pain. She does admit to diaphoresis associated with the pain however no nausea. She denies any radiation to her jaw or shoulder or arm. Denies any abdominal pain, nausea or vomiting. I have ordered labs including a troponin, TSH, and CBC, CMP and magnesium, EKG and a chest x-ray. Last Recorded V/S: Last Vital Signs Temp 96.7 F L 09/11/20 11:07 Pulse 108 H 09/11/20 11:07 Resp 24 H 09/11/20 11:07 BP 144/85 H 09/11/20 11:07 Pulse Ox - Orders/Labs/Meds Orders: Active Orders 24 hr Category Date Time Status EKG Documentation Completion [RC] ASDIRECTED Care 09/11/20 11:34 Active Chest 1V Frontal [CR] Stat Exams 09/11/20 11:36 Taken Sodium Chloride 0.9% [Saline Flush] Med 09/11/20 11:36 Active 10 ml FLUSH ASDIRECTED PRN Saline Lock Insert [OM.PC] Stat Oth 09/11/20 11:36 Ordered EKG 12 Lead [EK] Stat Ther 09/11/20 11:34 Ordered Medication Orders Sodium Chloride (Sodium Chloride 0.9% 10 Ml Syringe) 10 ml FLUSH ASDIRECTED PRN PRN Reason: Keep Vein Open Last Admin: 09/11/20 11:43 Dose: 10 ml Documented by: OLINDA Labs: Laboratory Tests 09/11/20 09/11/20 Range/Units 11:05 11:05 WBC 9.29 (3.98-10.04) K/mm3 RBC 4.84 (3.98-5.22) M/mm3 Hgb 14.4 (11.2-15.7) gm/dl Hct 43.5 (34.1-44.9) % MCV 89.9 (79.4-94.8) fl MCH 29.8 (25.6-32.2) pg MCHC 33.1 (32.2-35.5) g/dl RDW Std Deviation 44.0 (36.4-46.3) fL Plt Count 338 (182-369) K/mm3 MPV 9.9 (9.4-12.3) fl Neut % (Auto) 61.7 (34.0-71.1) % Lymph % (Auto) 28.4 (19.3-51.7) % [place] % (Auto) 7.0 (4.7-12.5) % Eos % (Auto) 2.3 (0.7-5.8) Baso % (Auto) 0.4 (0.1-1.2) % Neut # (Auto) 5.73 (1.56-6.13) K/mm3 Lymph # (Auto) 2.64 (1.18-3.74) K/mm3 [place] # (Auto) 0.65 H (0.24-0.36) K/mm3 Eos # (Auto) 0.21 (0.04-0.36) K/mm3 Baso # (Auto) 0.04 (0.01-0.08) K/mm3 Sodium 141 (136-145) mEq/L Potassium 3.7 (3.5-5.1) mEq/L Chloride 105 (98-107) mEq/L Carbon Dioxide 28 (21-32) mEq/L Anion Gap 11.7 (5-15) BUN 16 (7-18) mg/dL Creatinine 0.9 (0.55-1.02) mg/dL Est Cr Clr Drug Dosing 67.44 mL/min Estimated GFR (MDRD) > 60 (>60) mL/min BUN/Creatinine Ratio 17.8 (14-18) Glucose 100 H (70-99) mg/dL Calcium 8.9 (8.5-10.1) mg/dL Magnesium 1.8 (1.8-2.4) mg/dL Total Bilirubin 0.3 (0.2-1.0) mg/dL AST 21 (15-37) U/L ALT 33 (14-59) U/L Alkaline Phosphatase 76 (46-116) U/L Troponin I < 0.017 (0.00-0.056) ng/mL Total Protein 7.2 (6.4-8.2) g/dl Albumin 3.4 (3.4-5.0) g/dl Globulin 3.8 gm/dL Albumin/Globulin Ratio 0.9 L (1-2) TSH 3rd Generation 2.435 (0.358-3.74) uIU/mL Meds: Medications Generic Name Dose Route Start Last Admin Trade Name Freq PRN Reason Stop Dose Admin Sodium Chloride 10 ml 09/11/20 11:36 09/11/20 11:43 Sodium Chloride 0.9% 10 Ml Syringe FLUSH 10 ml ASDIRECTED PRN Administration Keep Vein Open - Re-Assessments/Exams Free Text/Narrative Re-Assessment/Exam: 09/11/20 12:23 Hematology reveals a WBC of 9.29, hemoglobin 14.4, hematocrit 43.5, platelet count 338, chemistry reveals a sodium of 141, potassium 3.7, carbon dioxide 28, anion gap 11.7, BUN 16, creatinine 0.9, glucose 100, magnesium 1.8, troponin less than 0.017, TSH 2.435 Nothing acute is appreciated on portable view of the chest. Official radiologist report is pending. Pt will be discharged to home with a holter monitor. She will need to follow up with her primary care physician by the middle of next week. 09/11/20 12:30 Discussed the plan with the patient. She now tells me that she is only here visiting. She was from here but had moved away to [place]. She states she does not have a primary care physician in town any longer. She states that she has yet to establish care in [place]. Recommend that she establish care in [place] and follow-up regarding her tachycardia. She states that tomorrow she will go to medical records and get a copy of her ED report to take to her physician once she establishes care. At the time I was visiting with her her heart rate was down into the 80s and 90s. Departure - Departure Time of Disposition: 12:31 Disposition: Home, Self-Care 01 Condition: Good Clinical Impression: Atypical chest pain, Tachycardia Instructions: Nonspecific Chest Pain, Adult, [id number] Referrals: Consuelo Merlos PA-C [Primary Care Provider] - Forms: ED Department Discharge Additional Instructions: You are seen in the emergency department today with complaints of chest pain and tachycardia. Labs, EKG and a chest x-ray completed. These were all unremarkable. Your thyroid level was within normal limits. Recommend that you obtain a primary care physician in your home town and follow-up regarding your tachycardia and chest pain. Should your condition worsen or change do not hesitate returning to the emergency department. Sepsis Event Note (ED) - Evaluation Sepsis Screening Result: No Definite Risk - Focused Exam Vital Signs: Vital Signs Temp Pulse Resp BP 09/11/20 11:07 96.7 F L 108 H 24 H 144/85 H - My Orders Last 24 Hours: My Active Orders 09/11/20 11:34 EKG Documentation Completion [RC] ASDIRECTED EKG 12 Lead [EK] Stat 09/11/20 11:36 Chest 1V Frontal [CR] Stat Sodium Chloride 0.9% [Saline Flush] 10 ml FLUSH ASDIRECTED PRN Saline Lock Insert [OM.PC] Stat - Assessment/Plan Last 24 Hours: My Active Orders 09/11/20 11:34 EKG Documentation Completion [RC] ASDIRECTED EKG 12 Lead [EK] Stat 09/11/20 11:36 Chest 1V Frontal [CR] Stat Sodium Chloride 0.9% [Saline Flush] 10 ml FLUSH ASDIRECTED PRN Saline Lock Insert [OM.PC] Stat
--- NOTE | 2020-09-11 12:45 | CR ---
Chest: Portable view of the chest was obtained. Comparison: Prior chest x-ray of 07/23/19. Heart size and mediastinum are within normal limits for portable technique. Lungs are clear with no acute parenchymal change. No acute osseous abnormality is appreciated. Impression: 1. Nothing acute is appreciated on portable chest x-ray. Diagnostic code #1
== END 2020-09-11 12:52 | disposition home or self-care (01) ==
LOC: JD.ED 10:52
DX: R07.89 Other chest pain (principal); R00.0 Tachycardia, unspecified; E66.9 Obesity, unspecified; Z68.30 Body mass index [BMI] 30.0-30.9, adult; Z91.018 Allergy to other foods; Z91.010 Allergy to peanuts; Z88.8 Allergy status to other drugs, medicaments and biological substances
CPT/HCPCS: 36415; 71045; 71045-26; 80053; 83735; 84443; 84484; 85025; 93005; 93010; 99284; 99285-25